=== PATIENT | male | born 1960 | race Two or more races ===

== ENCOUNTER 2020-05-26 14:52 | Outpatient (RCR) | payer MEDICARE, OTHER | END 2020-06-17 | disposition home or self-care (01) | LOC: WCC 14:52 | DX: E11.628 Type 2 diabetes mellitus with other skin complications (principal); L08.9 Local infection of the skin and subcutaneous tissue, unspecified; Z89.421 Acquired absence of other right toe(s); N18.6 End stage renal disease; I73.9 Peripheral vascular disease, unspecified; Z99.2 Dependence on renal dialysis; I12.0 Hypertensive chronic kidney disease with stage 5 chronic kidney disease or end stage renal disease; E11.22 Type 2 diabetes mellitus with diabetic chronic kidney disease; Z86.73 Personal history of transient ischemic attack (TIA), and cerebral infarction without residual deficits; Z87.891 Personal history of nicotine dependence; Z79.899 Other long term (current) drug therapy; Z89.021 Acquired absence of right finger(s); Z89.412 Acquired absence of left great toe | CPT/HCPCS: G0463 ==